=== PATIENT | female | born 1970 | race Caucasian/White ===

== ENCOUNTER 2020-06-03 22:00 | Emergency (ER) | payer OTHER ==
[2020-06-03] MEDS ORDERED: IBUPROFEN 600 MG TABLET (FP) PO ONE ×2 (22:04→22:10)
[2020-06-03] MEDS ORDERED: DEXAMETHASONE 4 MG TABLET (FP) PO ONE (22:04)
[2020-06-03] MEDS ORDERED: DEXAMETHASONE 4 MG TABLET (FP) ONE (22:10)
[2020-06-03 22:20] VITALS: BP 107/68; PULSE 98; TEMP 97.8; BMI 34.7
== END 2020-06-03 23:11 | disposition home or self-care (01) ==
LOC: JER 22:00
DX: U07.1 COVID-19 (principal)
CPT/HCPCS: 71046-TC-FY; 99284-25